=== PATIENT | female | born 1975 | race Caucasian/White ===

== ENCOUNTER → 2023-12-17 18:18 | Outpatient (REF) | payer OTHER, SELFPAY | LOC: WDC 18:18 | PROVIDERS: ATTENDING PHYSICIAN Obstetrics & Gynecology; FAMILY PHYSICIAN Nurse Practitioner Adult Health | DX: Z12.31 Encounter for screening mammogram for malignant neoplasm of breast (principal) | CPT/HCPCS: 77063; 77067 ==

== ENCOUNTER 2024-03-20 10:14 | Emergency (ER) | payer OTHER, SELFPAY ==
[2024-03-20 10:25] VITALS: BP 139/86
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
[2024-03-20] MEDS: ADACEL 0.5 ML IM (11:39)
== END 2024-03-20 11:53 | disposition home or self-care (01) ==
LOC: EMR 10:14
PROVIDERS: EMERGENCY PHYSICIAN Emergency Medicine; FAMILY PHYSICIAN Nurse Practitioner Adult Health
DX: S01.81XA Laceration without foreign body of other part of head, initial encounter (principal); W21.11XA Struck by baseball bat, initial encounter
CPT/HCPCS: 99282; 90471; 12011; 90715

== ENCOUNTER → 2024-12-20 17:38 | Outpatient (REF) | payer OTHER, SELFPAY | LOC: WDC 17:38 | PROVIDERS: ATTENDING PHYSICIAN Obstetrics & Gynecology; FAMILY PHYSICIAN Nurse Practitioner Adult Health | DX: Z12.31 Encounter for screening mammogram for malignant neoplasm of breast (principal) | CPT/HCPCS: 77063; 77067 ==

== ENCOUNTER 2025-05-13 06:18 | Day surgery (SDC) | payer OTHER, SELFPAY | END 2025-05-13 08:54 | disposition home or self-care (01) | LOC: GI 06:18 | PROVIDERS: ATTENDING PHYSICIAN Internal Medicine Gastroenterology | DX: Z12.11 Encounter for screening for malignant neoplasm of colon (principal); K57.30 Diverticulosis of large intestine without perforation or abscess without bleeding; Z80.0 Family history of malignant neoplasm of digestive organs | CPT/HCPCS: G0121 ==